=== PATIENT | male | born 1955 | race Caucasian/White ===

== ENCOUNTER 2017-05-05 17:15 | Emergency (ER) | payer MEDICARE ==
[2017-05-05 18:24] LABS: HEMATOCRIT 47.8 % (39.0-50.0); HEMOGLOBIN 15.5 g/dl (14.0-18.0); IMMATURE GRANULOCYTES 0.2 % (0.0-1.0); MEAN CELL VOLUME 93.4 fL CALC (80.0-100.0); MEAN CORPUSCULAR HGB 30.3 pG CALC (26.0-32.0); MEAN CORPUSCULAR HGB CONC 32.4 g/L CALC (32.0-36.0); RED BLOOD COUNT 5.12 mill/uL (4.70-6.10); RED CELL DISTRI WIDTH 13.8 % (11.5-15.5)
[2017-05-05] MEDS ORDERED: NITROGLYCERIN0.4 MG PO (18:59)
[2017-05-05 19:01] LABS: ANION GAP 14 (6-22 (CALC)); BUN 18 mg/dL (8-23); BUN/CREATININE RATIO 20 (12-20 (CALC)); CALCIUM 9.3 mg/dL (8.4-10.2); CARBON DIOXIDE 30 mmol/l (22-30); CHLORIDE 103 mmol/l (95-108); CREATININE 0.9 mg/dL (0.7-1.3); GFR > 60 ML/MIN (>=60 (CALC)); GFR FOR AFR.AMER. > 60 ML/MIN (>=60 (CALC)); GLUCOSE 185 mg/dL (82-115); POTASSIUM 4.3 mmol/l (3.5-5.1); SODIUM 142 mmol/l (137-146)
[2017-05-05 19:07] VITALS: BP 234/117
== END 2017-05-05 19:21 | disposition left against medical advice (07) ==
LOC: ED 17:15
PROVIDERS: Family Medicine
DX: R07.9 Chest pain, unspecified (principal); J44.9 Chronic obstructive pulmonary disease, unspecified; I10 Essential (primary) hypertension; K21.9 Gastro-esophageal reflux disease without esophagitis; Z91.14 Patient's other noncompliance with medication regimen; Z91.19 Patient's noncompliance with other medical treatment and regimen

== ENCOUNTER 2018-08-04 11:24 | Emergency (ER) | payer MEDICARE ==
[~2018-08-04] VITALS: Ht 182.9 cm; Wt 108.2 kg
[~2018-08-04 11:24] MED LIST: NITROGLYCERIN0.4 MG PO
[2018-08-04] MEDS ORDERED: NITROGLYCERIN0.4 MG SL (11:40)
[2018-08-04 11:44] VITALS: BP 173/83
== END 2018-08-04 11:50 | disposition left against medical advice (07) ==
LOC: ED 11:24
DX: R07.9 Chest pain, unspecified (principal); I10 Essential (primary) hypertension; K22.4 Dyskinesia of esophagus; Z91.19 Patient's noncompliance with other medical treatment and regimen